=== PATIENT | male | born 1945 | race Caucasian/White ===

== ENCOUNTER → 2016-09-29 | Outpatient (CLI) | payer MEDICARE, BC ==
[~2016-09-29] VITALS: Ht 177.8 cm; Wt 83.0 kg
[~2016-09-29] MED LIST: CIAL20TA PO; CLAR1TAB2 PO; MULT1TAB10 PO; NS 1,000 ML IV ONE; PROPOFOL 200 MG/20 ML VIAL As Ordered ONE; TYLE500T78 PO; VITA-171 PO
--- NOTE | 2016-09-29 09:07 | ROOR ---
Patient Name: See Paredes Procedure Date: 09/29/2016 8:45 AM Date of : 1945 Age: 70 Room: [facility] Gender: Male Note Status: Finalized Procedure: Colonoscopy to Cecum Indications: High risk colon cancer surveillance: Personal history of colonic polyps Providers: Davy Pate MD Referring MD: DARCI LOZA JR, MD Requesting Provider: Medicines: Monitored Anesthesia Care Complications: No immediate complications. Procedure: Pre-Anesthesia Assessment: - The heart rate, respiratory rate, oxygen saturations, blood pressure, adequacy of pulmonary ventilation, and response to care were monitored throughout the procedure. The Colonoscope was introduced through the anus and advanced to the cecum, identified by appendiceal orifice and ileocecal valve. The colonoscopy was performed without difficulty. The patient tolerated the procedure well. The quality of the bowel preparation was excellent. Findings: The perianal and digital rectal examinations were normal. Non-bleeding internal hemorrhoids were found during retroflexion. The hemorrhoids were small and Grade I (internal hemorrhoids that do not prolapse). The mucosa vascular pattern in the rectum was locally increased. Multiple small and large-mouthed diverticula were found in the recto-sigmoid colon, sigmoid colon and descending colon. The exam was otherwise without abnormality on direct and retroflexion views. Impression: - Non-bleeding internal hemorrhoids. - Increased mucosa vascular pattern in the rectum. - Diverticulosis in the recto-sigmoid colon, in the sigmoid colon and in the descending colon. - The examination was otherwise normal on direct and retroflexion views. - No specimens collected. - Radiation proctitis. - The exam was otherwise normal to the cecum. Recommendation: - Patient has a contact number available for emergencies. The signs and symptoms of potential delayed complications were discussed with the patient. Return to normal activities tomorrow. Written discharge instructions were provided to the patient. - High fiber diet. - Discharge patient to home. - Continue present medications. - Repeat colonoscopy for symptoms only. - Return to referring physician. - The findings and recommendations were discussed with the patient's family. Davy Pate MD Davy Pate MD 09/29/2016 9:07:32 AM This report has been signed electronically. Number of Addenda: 0 Note Initiated On: 09/29/2016 8:45 AM Estimated Blood Loss: Estimated blood loss: none.
[2016-09-29 09:20] VITALS: BP 115/78
== END | disposition home or self-care (01) ==
LOC: M OPP 08:06
PROVIDERS: ATTEND Internal Medicine Gastroenterology
DX: Z12.11 Encounter for screening for malignant neoplasm of colon (principal); K64.0 First degree hemorrhoids; K57.30 Diverticulosis of large intestine without perforation or abscess without bleeding; Z86.010 Personal history of colon polyps; K62.7 Radiation proctitis; K57.92 Diverticulitis of intestine, part unspecified, without perforation or abscess without bleeding; Z85.828 Personal history of other malignant neoplasm of skin; Z92.3 Personal history of irradiation; Z85.46 Personal history of malignant neoplasm of prostate; Z80.3 Family history of malignant neoplasm of breast; Z80.42 Family history of malignant neoplasm of prostate; Z80.8 Family history of malignant neoplasm of other organs or systems; Z87.891 Personal history of nicotine dependence; Z79.899 Other long term (current) drug therapy

== ENCOUNTER → 2020-04-12 | Outpatient (CLI) | payer SELFPAY ==
[~2020-04-12] MED LIST changes: -NS 1,000 ML IV ONE; -PROPOFOL 200 MG/20 ML VIAL As Ordered ONE
== END ==
LOC: M LABSMTC 14:25
PROVIDERS: ATTEND Pediatrics
DX: Z20.828 Contact with and (suspected) exposure to other viral communicable diseases (principal)

== ENCOUNTER → 2023-10-09 | Outpatient (CLI) | payer MEDICARE, OTHER | LOC: M WUC 13:12 | PROVIDERS: ATTEND Internal Medicine | DX: M54.6 Pain in thoracic spine (principal) ==